=== PATIENT | male | born 1995 | race Caucasian/White ===

== ENCOUNTER 2017-01-20 13:24 | Emergency (ER) | payer OTHER ==
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
[2017-01-20 17:05] VITALS: BP 135/70
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
== END 2017-01-20 17:05 | disposition home or self-care (01) ==
LOC: ED 13:24
DX: S51.032A Puncture wound without foreign body of left elbow, initial encounter (principal); S63.502A Unspecified sprain of left wrist, initial encounter; V19.9XXA Pedal cyclist (driver) (passenger) injured in unspecified traffic accident, initial encounter; Y93.55 Activity, bike riding; Y92.9 Unspecified place or not applicable
CPT/HCPCS: 99282

== ENCOUNTER 2017-01-22 18:24 | Emergency (ER) | payer OTHER ==
[2017-01-22 18:35] VITALS: BP 119/68
[2017-01-22] MEDS ORDERED: Sulfamethox/Trimethoprim DS 800/160* TAB PO ONE (19:06)
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
--- NOTE | 2017-01-22 19:38 | RAD ---
INDICATION: Right forearm injury COMPARISON: None TECHNIQUE: AP and lateral views were obtained. FINDINGS: There is no fracture or foreign body. There is soft tissue injury about the proximal forearm. IMPRESSION: SOFT TISSUE INJURY. NO FRACTURE OR FOREIGN BODY.
== END 2017-01-22 19:52 | disposition home or self-care (01) ==
LOC: UCEAST 18:24
DX: S51.831D Puncture wound without foreign body of right forearm, subsequent encounter (principal)
CPT/HCPCS: 99212; A9270-GY; G0463

== ENCOUNTER 2017-01-24 15:32 | Emergency (ER) | payer OTHER ==
[2017-01-24 15:40] VITALS: BP 113/59
--- NOTE | 2017-01-24 15:46 | ED ---
ED Suture/Wound Check - HPI Summary HPI Summary: 21 YEAR OLD MALE PRESENTS FOR A RECHECK OF RIGHT ELBOW PUNCTURE WOUND. I AM VERY CONCERNED ABOUT A SEVERE INFECTION THAT MIGHT NEED OPERATING ROOM WASH OUT. I WILL REFER HIM TO DR MCDANIEL. - History Of Current Complaint Chief Complaint: UCGeneralIllness Stated Complaint: PUNCTURE WOUND RECHECK Time Seen by Provider: 01/24/17 15:40 Hx Obtained From: Patient Onset/Duration: Sudden Onset Severity: Moderate Pain Scale Used: 0-10 Numeric - 5 - Allergies/Home Medications Allergies/Adverse Reactions: Allergies Allergy/AdvReac Type Severity Reaction Status Date / Time No Known Allergies Allergy Verified 01/24/17 15:35 Home Medications: Home Medications NK [No Home Medications Reported] 01/24/17 [History Confirmed 01/24/17] PMH/Surg Hx/FS Hx/Imm Hx Previously Healthy: Yes Respiratory History: Reports: Hx Pneumonia Infectious Disease History: No Infectious Disease History: Denies: Hx Clostridium Difficile, Hx Hepatitis, Hx Human Immunodeficiency Virus (HIV), Hx of Known/Suspected MRSA, Hx Shingles, Hx Tuberculosis, Hx Known/ Suspected VRE, Hx Known/Suspected VRSA, History Other Infectious Disease, Traveled Outside the [place] in Last 30 Days - Family History Known Family History: Positive: None - Social History Alcohol Use: Rare Hx Substance Use: No Substance Use Type: Reports: None Hx Tobacco Use: No Smoking Status (MU): Never Smoked Tobacco Review of Systems Constitutional: Negative Eyes: Negative ENT: Negative Cardiovascular: Negative Respiratory: Negative Gastrointestinal: Negative Genitourinary: Negative Musculoskeletal: Negative Positive: Other - RIGHT ELBOW WOUND All Other Systems Reviewed And Are Negative: Yes Physical Exam Triage Information Reviewed: Yes Vital Signs On Initial Exam: Initial Vitals Temp Pulse Resp BP Pulse Ox 36.6 C 60 18 113/59 100 01/24/17 15:36 01/24/17 15:36 01/24/17 15:36 01/24/17 15:36 01/24/17 15:36 Vital Signs Reviewed: Yes Appearance: Positive: Well-Appearing Skin: Positive: Other - RIGHT ELBOW PUNCTURE WOUND Eyes: Positive: Normal ENT: Positive: Normal ENT inspection Diagnostics - Vital Signs Vital Signs Temp Pulse Resp BP Pulse Ox 01/24/17 15:36 36.6 C 60 18 113/59 100 - Laboratory Lab Statement: Any lab studies that have been ordered have been reviewed, and results considered in the medical decision making process. Course/Dx - Clinical Impression Provider Diagnoses: Puncture wound of right elbow Discharge - Discharge Plan Condition: Stable Disposition: HOME Patient Education Materials: Puncture Wound (ED) Referrals: ROSIBEL Tucker [Primary Care Provider] - Additional Instructions: DR AIRAM BOYKNI OFFICE WAS CALLED TO HAVE PATIENT SEEN IMMEDIATELY FOR RIGHT ELBOW WOUND WITH PURULENT DISCHARGE.
== END 2017-01-24 16:00 | disposition home or self-care (01) ==
LOC: UCEAST 15:32
DX: S51.0 Open wound of elbow (principal); X58.XXXD Exposure to other specified factors, subsequent encounter
CPT/HCPCS: 99211; G0463

== ENCOUNTER 2017-01-26 14:55 | Emergency (ER) | payer OTHER ==
[2017-01-26 15:20] VITALS: BP 113/58
--- NOTE | 2017-01-26 15:37 | UC ---
HPI Wound/Suture Re-check - HPI Summary HPI Summary: 21 YEAR OLD MALE PRESENTS FOR PACKING OF RIGHT ELBOW PUNCTURE WOUND. - History Of Current Complaint Chief Complaint: UCWounds Stated Complaint: WOUND RECHECK Time Seen by Provider: 01/26/17 15:34 Hx Obtained From: Patient Onset/Duration: Lasting Days Severity: Mild Pain Scale Used: 0-10 Numeric - 1 - Allergies/Home Medications Allergies/Adverse Reactions: Allergies Allergy/AdvReac Type Severity Reaction Status Date / Time No Known Allergies Allergy Verified 01/24/17 15:35 Home Medications: Home Medications Sulfamethox/Trimethoprim DS* [Bactrim DS 800/160 TAB*] 1 tab PO BID 01/26/17 [ History Confirmed 01/26/17] PMH/Surg Hx/FS Hx/Imm Hx Previously Healthy: Yes - Surgical History Surgical History: None - Family History Known Family History: Positive: None - Social History Alcohol Use: Rare Substance Use Type: None Smoking Status (MU): Never Smoked Tobacco Review of Systems Constitutional: Negative Skin: Other - RIGHT ELBOW PUNCTURE WOUND Eyes: Negative ENT: Negative Respiratory: Negative Cardiovascular: Negative Gastrointestinal: Negative Genitourinary: Negative Motor: Negative Neurovascular: Negative Musculoskeletal: Negative Neurological: Negative Psychological: Negative Is Patient Immunocompromised?: Yes All Other Systems Reviewed And Are Negative: Yes Physical Exam Triage Information Reviewed: Yes Vital Signs: Initial Vital Signs Temp 37.3 C 01/26/17 15:13 Pulse 78 01/26/17 15:13 Resp 18 01/26/17 15:13 BP 113/58 01/26/17 15:13 Pulse Ox 100 01/26/17 15:13 Vital Signs Reviewed: Yes Eye Exam: Normal ENT Exam: Normal Dental Exam: Normal Neck exam: Normal Neck: Positive: 1 Respiratory Exam: Normal Cardiovascular Exam: Normal Abdominal Exam: Normal Musculoskeletal Exam: Normal Neurological Exam: Normal Psychological Exam: Normal Skin: Positive: Other - RIGHT ELBOW PUNCTURE WOUND - C/D/I, PACKING INTACT Course/Dx - Differential Dx - Laceration/Wound Provider Diagnoses: RIGHT ELBOW PUNCTURE WOUND Discharge - Discharge Plan Condition: Stable Disposition: HOME Prescriptions: Sulfamethox/Trimethoprim DS* [Bactrim DS 800/160 TAB*] 1 tab PO DAILY #10 tab Patient Education Materials: Puncture Wound (ED), Wound Infection (ED) Referrals: ROSIBEL Tucker [Primary Care Provider] -
== END 2017-01-26 16:07 | disposition home or self-care (01) ==
LOC: UCEAST 14:55
DX: S51.0 Open wound of elbow (principal); X58.XXXD Exposure to other specified factors, subsequent encounter; Z48.00 Encounter for change or removal of nonsurgical wound dressing
CPT/HCPCS: 87070; 87077; 87205; 87640; 87641; 99213; G0463

== ENCOUNTER 2017-09-16 17:59 | Emergency (ER) | payer OTHER ==
[2017-09-16 18:08] VITALS: BP 129/81
[2017-09-16] MEDS ORDERED: Ibuprofen TAB* 800 MG PO ONE (18:46)
--- NOTE | 2017-09-16 19:34 | RAD ---
INDICATION: Left knee injury, possible patellar dislocation. TECHNIQUE: 4 views of the left knee were obtained. FINDINGS: The bones are in normal alignment. There is a large joint effusion with a fat fluid level. There is mild irregularity of the articular surface of the medial facet of the patella most consistent with an osteochondral lesion and recent dislocation of the patella. There is a lucent lesion with sclerotic margin present in the posterior diaphysis of the femur measuring 3.2 x 1.0 cm in size likely representing a benign lesion possibly a fibrous cortical defect. IMPRESSION: 1. LARGE JOINT EFFUSION WITH FAT FLUID LEVEL. 2. PROBABLE OSTEOCHONDRAL LESION OF THE MEDIAL FACET OF THE PATELLA FROM RECENT DISLOCATION. RECOMMEND A FOLLOW-UP OUTPATIENT MRI OF THE KNEE FOR FURTHER EVALUATION. 3. LIKELY BENIGN OSSEOUS LESION IN THE DISTAL FEMUR DESCRIBED, THIS CAN ALSO FURTHER BE EVALUATED WITH MR IMAGING.
--- NOTE | 2017-09-16 20:48 | ED ---
Lower Extremity - HPI Summary HPI Summary: Patient is a 22-year-old male who presents emergency department for a left knee injury that occurred just prior to arrival. Patient states he was playing soccer when he planted and twisted his left knee. He states that his patella sublux and he was able to reduce it by pushing it medially and straightening leg. Patient states he's had no knee issues or history of subluxation. He denies numbness, tingling or weakness to extremity. Symptoms are mild in severity. Pending and walking makes symptoms worse. Rest makes symptoms better. - History of Current Complaint Chief Complaint: EDExtremityLower Stated Complaint: LT KNEE DISLOCATION Time Seen by Provider: 09/16/17 18:36 Hx Obtained From: Patient Pain Intensity: 0 Pain Scale Used: 0-10 Numeric - Allergies/Home Medications Allergies/Adverse Reactions: Allergies Allergy/AdvReac Type Severity Reaction Status Date / Time No Known Allergies Allergy Verified 09/16/17 18:09 Home Medications: Home Medications NK [No Home Medications Reported] 09/16/17 [History Confirmed 09/16/17] PMH/Surg Hx/FS Hx/Imm Hx Previously Healthy: Yes Respiratory History: Reports: Hx Pneumonia Infectious Disease History: No Infectious Disease History: Denies: Hx Clostridium Difficile, Hx Hepatitis, Hx Human Immunodeficiency Virus (HIV), Hx of Known/Suspected MRSA, Hx Shingles, Hx Tuberculosis, Hx Known/ Suspected VRE, Hx Known/Suspected VRSA, History Other Infectious Disease, Traveled Outside the [place] in Last 30 Days - Family History Known Family History: Positive: None - Social History Occupation: Student Lives: Dormitory/Roommates Alcohol Use: Rare Hx Substance Use: No Substance Use Type: Reports: None Hx Tobacco Use: No Smoking Status (MU): Never Smoked Tobacco Review of Systems Positive: Other - Left knee pain and swelling Negative: Weakness, Paresthesia, Numbness All Other Systems Reviewed And Are Negative: Yes Physical Exam Triage Information Reviewed: Yes Vital Signs On Initial Exam: Initial Vitals Temp Pulse Resp BP Pulse Ox 98.2 F 54 16 129/81 96 09/16/17 18:06 09/16/17 18:06 09/16/17 18:06 09/16/17 18:06 09/16/17 18:06 Vital Signs Reviewed: Yes Appearance: Positive: Well-Appearing - Pt. lying on bed in NAD. Head/Face: Positive: Normal Head/Face Inspection Eyes: Positive: Normal, MICHELLE Neck: Positive: Supple Musculoskeletal: Positive: Other - Left leg is neurovascularly intact with good palpable pedal pulse. Large effusion noted. Patellar and quadriceps tendons are intact. No increased laxity with valgus and varus stressing. Negative anterior drawer. Neurological: Positive: Normal, CN Intact II-III Psychiatric: Positive: Normal Procedures - Splinting Pre-Made Type: knee immobilizer Pre-Proc Neuro Vasc Exam: normal Post-Proc Neuro Vasc Exam: normal Diagnostics - Vital Signs Vital Signs Temp Pulse Resp BP Pulse Ox 09/16/17 20:11 98.2 F 54 16 129/81 99 09/16/17 18:06 98.2 F 54 16 129/81 96 - Laboratory Lab Statement: Any lab studies that have been ordered have been reviewed, and results considered in the medical decision making process. Lower Extremity Course/Dx - Course Course Of Treatment: Patient presenting to the emergency department for evaluation of left knee injury. Pt. reportedly had a patella subluxation and reduced it himself prior to arrival. Patient was given a dose of ibuprofen for pain. Knee x-ray reading per radiology: IMPRESSION: 1. LARGE JOINT EFFUSION WITH FAT FLUID LEVEL. 2. PROBABLE OSTEOCHONDRAL LESION OF THE MEDIAL FACET OF THE PATELLA FROM RECENT. DISLOCATION. RECOMMEND A FOLLOW-UP OUTPATIENT MRI OF THE KNEE FOR FURTHER EVALUATION. 3. LIKELY BENIGN OSSEOUS LESION IN THE DISTAL FEMUR DESCRIBED, THIS CAN ALSO FURTHER BE. EVALUATED WITH MR IMAGING. Results were discussed with pt. He was informed of osseous lesion and the need for f.u for further evaluation. Knee immobilizer and crutches were placed. Patient to call the orthopedic clinic tomorrow for an appointment. Advised to ice and elevate. Insets for pain as directed. To return to the ear symptoms change or worsen. Patient understands and agrees with plan. - Diagnoses Differential Diagnosis/HQI/PQRI: Positive: Contusion, Dislocation, Fracture ( Closed), Sprain, Strain Provider Diagnoses: Patellar dislocation, Bone lesion Discharge - Sign-Out/Discharge Documenting (check all that apply): Discharge/Admit/Transfer - Discharge Plan Condition: Good Disposition: HOME Patient Education Materials: Patellar Dislocation (ED) [facility] [Primary Care Provider] - Aline Mathur MD [Medical Doctor] - Additional Instructions: Call Dr. Mathur's office tomorrow for an appointment Ice and elevate Wear splint and crutches for walking NSAIDS for pain as directed Return to ER if symptoms change or worsen - Billing Disposition and Condition Condition: GOOD Disposition: HOME
== END 2017-09-16 20:12 | disposition home or self-care (01) ==
LOC: ED 17:59
DX: S83.005A Unspecified dislocation of left patella, initial encounter (principal); X58.XXXA Exposure to other specified factors, initial encounter; Y93.66 Activity, soccer; Y92.322 Soccer field as the place of occurrence of the external cause; M89.9 Disorder of bone, unspecified
CPT/HCPCS: 99282; A9270-GY